=== PATIENT | male | born 1985 | race African-American/Black ===

== ENCOUNTER 2021-03-22 08:51 | Emergency (ER) | payer OTHER ==
[~2021-03-22] VITALS: Ht 195.6 cm; Wt 90.0 kg
[2021-03-22] MEDS ORDERED: ACETAMINOPHEN WITH CODEINE 300/30MG TABLET PO ONE (10:00)
[2021-03-22 10:47] LABS: BASOPHILS % 1.1 % (0.0-2.0); EOSINOPHILS % 1.7 % (0.0-5.0); HEMATOCRIT. 41.6 % (42.0-52.0); HEMOGLOBIN. 14.3 g/dL (14.0-18.0); LYMPHOCYTES % 36.3 % (20.0-50.0); MEAN CORPUSCULAR HEMOGLOBIN 30.7 pg (28.0-32.0); MEAN CORPUSCULAR VOLUME 89.5 fL (80.0-94.0); MEAN PLATELET VOLUME 8.3 fl (7.4-10.4); NEUTROPHILS % 49.9 % (40.0-76.0); PLATELET 213 x1000/uL (130-400); RED BLOOD CELL COUNT 4.65 mill/uL (4.7-6.1); RED CELL DISTRIBUTION WIDTH 13.9 % (11.6-14.6)
[2021-03-22 10:56] LABS: CHLORIDE 104 mEq/L (98-107)
[2021-03-22] MEDS ORDERED: TOPUD PO (11:24)
[2021-03-22 11:50] VITALS: BP 144/96
== END 2021-03-22 11:54 | disposition home or self-care (01) ==
LOC: ER 08:51
DX: R07.89 Other chest pain (principal)
CPT/HCPCS: 36415; 71045; 80053; 83880; 84484; 85025; 85379; 93005; 99285